=== PATIENT | female | born 1950 | race Caucasian/White ===

== ENCOUNTER → 2024-03-11 | Outpatient (CLI) | payer MEDICARE, BC, SELFPAY ==
[2024-03-08 10:20] LABS: Basophils % (Auto) 1 % (0-2.5); Eosinophils # (Auto) 0.2 Thou/mm3 (0.0-0.5); Eosinophils % (Auto) 5 % (0-10); Hematocrit 34.4 % (36.0-46.0); Hemoglobin 12.1 g/dL (12.0-16.0); Immature Granulocytes % (Auto) 0 % (0-0); Immature Granulocytes Auto 0.01 Thou/mm3 (0.00-0.00); Lymphocytes # (Auto) 0.8 Thou/mm3 (1.0-4.8); Lymphocytes % (Auto) 17 % (10-50); Mean Corpuscular HGB Conc 35.2 g/dl (31.0-37.0); Mean Corpuscular Hemoglobin 33.2 pg (25.0-35.0); Mean Corpuscular Volume 94 fL (80-100); Monocytes # (Auto) 0.5 Thou/mm3 (0.0-0.8); Monocytes % (Auto) 10 % (0-12); Neutrophils # (Auto) 2.9 Thou/mm3 (1.8-7.7); Neutrophils % (Auto) 67 % (37-80); Nucleated Red Blood Cell % 0 /100 WBC (0); Platelet Count 206 Thou/mm3 (140-440); RDW Standard Deviation 46.5 fL (36.4-46.3); Red Blood Count 3.65 Miln/mm3 (4.00-5.20); White Blood Count 4.4 Thou/mm3 (3.6-11.0)
[2024-03-08 10:27] LABS: INR 0.9 (0.9-1.3); Partial Thromboplastin Time 22.9 Seconds (22.0-36.0); Prothrombin Time 10.4 Seconds (9.0-12.2)
--- NOTE | 2024-03-11 08:00 | XR_ITS ---
Examination: Thyroid sonography complete TECHNIQUE: Grayscale sonographic images thyroid lobes with color flow analysis Exam date and time: March 11, 2024 0922 hours Comparison May 15, 2023 INDICATIONS: Enlarging left thyroid nodule 18 x 12 x 13 mm on thyroid sonogram May 15, 2023 FINDINGS: Right thyroid 4.1 x 1.2 x 1.4 cm Upper pole cyst 5 x 3 mm, smaller cysts Left thyroid 4.7 x 1.5 x 1.7 cm Upper pole nodule 11 x 9 mm Midpole vascular nodule 21 x 12 x 13 mm IMPRESSION: Left thyroid nodules as above
--- NOTE | 2024-03-11 08:30 | XR_ITS ---
Examination: Ultrasound-guided fine needle percutaneous aspiration thyroid nodule, left thyroid nodule. Thyroid sonography, limited Exam date and time: March 11, 2024 0929 hours INDICATIONS: Vascular midpole left thyroid nodule on thyroid sonogram May 15, 2023. Technique: A timeout was completed verifying correct patient, procedure, site, positioning and special equipment if applicable. The patient was placed in supine position for the thyroid fine needle percutaneous aspiration The patient's left neck was prepped and draped in sterile fashion. Maximum barrier sterile technique, hand hygiene, ultrasound sterile technique. 1% lidocaine was used to anesthetize the skin and subcutaneous tissues to the patient's right thyroid nodule. Multiple fine needle aspirations were performed and multiple thyroid specimens placed in preservative according to the [employer] protocol. Specimens appears satisfactory. The attending radiologist was present for the entire procedure. Estimated blood loss 3 cc. The patient tolerated the procedure well and there were no complications. Impression: Successful ultrasound-guided fine-needle percutaneous aspiration thyroid nodule, left thyroid nodule.
== END | disposition home or self-care (01) ==
LOC: SDIM 08:05 → SIRX 08:50
PROVIDERS: Radiology Diagnostic Radiology; PCP Family Medicine; Referring Provider Nurse Practitioner; Visit Provider Nurse Practitioner
DX: E04.2 Nontoxic multinodular goiter (principal); C54.1 Malignant neoplasm of endometrium; Z01.812 Encounter for preprocedural laboratory examination
CPT/HCPCS: 10005; 36415; 76536; 85025; 85610; 85730

== ENCOUNTER → 2024-04-30 | Outpatient (CLI) | payer MEDICARE, BC, SELFPAY ==
[2024-04-30 15:43] LABS: Alanine Aminotransferase 11 U/L (10-49); Albumin, Serum 4.4 gm/dL (3.4-4.8); Albumin/Globulin Ratio 2.2 (1.2-2.2); Alkaline Phosphatase 116 U/L (46-116); Anion Gap 8 (7-16); Aspartate Amino Transferase 21 U/L (0-34); BUN/Creatinine Ratio 23 Ratio (12-20); Bilirubin,Total 0.8 mg/dL (0.3-1.2); Blood Urea Nitrogen 21 mg/dL (9-23); Calcium 9.5 mg/dL (8.3-10.6); Calcium (Corrected) 9.5 mg/dL (8.5-10.1); Carbon Dioxide 30.4 mMol/L (20.0-31.0); Chloride 102 mMol/L (98-107); Creatinine (Component) 0.9 mg/dL (0.6-1.3); Glucose 138 mg/dL (74-106); Osmolality,Calculated 284 (275-295); Potassium 4.3 mMol/L (3.4-5.1); Sodium 140 mMol/L (136-145); Total Protein 6.4 gm/dL (5.7-8.2); eGFR > 60 See Note
== END | disposition home or self-care (01) ==
LOC: COPL 13:55
PROVIDERS: PCP Family Medicine; Referring Provider Internal Medicine; Visit Provider Internal Medicine
DX: C54.1 Malignant neoplasm of endometrium (principal)
CPT/HCPCS: 36415; 80053

== ENCOUNTER → 2024-07-03 | Outpatient (CLI) | payer MEDICARE, BC, SELFPAY ==
--- NOTE | 2024-07-03 16:05 | XR_ITS ---
Examination:Right hip AP, lateral, AP pelvis 3 views Technique: Hip AP lateral, AP pelvis, 3 views Exam date and time:July 03, 2024 1611 hours INDICATIONS: Right hip pain years. FINDINGS: Moderate osteopenia Moderate narrowing right and left hip joints Greater trochanteric bursitis right hip No hip or pelvic fractures IMPRESSION: Moderate narrowing right and left hip joints. Greater trochanteric bursitis right hip
== END | disposition home or self-care (01) ==
PROVIDERS: PCP Family Medicine; Referring Provider Family Medicine; Visit Provider Family Medicine
DX: M70.61 Trochanteric bursitis, right hip (principal); M25.852 Other specified joint disorders, left hip; M25.851 Other specified joint disorders, right hip
CPT/HCPCS: 73502

== ENCOUNTER → 2024-07-22 | Outpatient (CLI) | payer MEDICARE, BC, SELFPAY ==
[2024-07-22 15:02] LABS: Alanine Aminotransferase 14 U/L (10-49); Albumin, Serum 4.1 gm/dL (3.4-4.8); Albumin/Globulin Ratio 2.2 (1.2-2.2); Alkaline Phosphatase 160 U/L (46-116); Anion Gap 9 (7-16); BUN/Creatinine Ratio 31 Ratio (12-20); Bilirubin,Total 0.7 mg/dL (0.3-1.2); Blood Urea Nitrogen 25 mg/dL (9-23); Calcium 9.4 mg/dL (8.3-10.6); Calcium (Corrected) 9.4 mg/dL (8.5-10.1); Carbon Dioxide 26.7 mMol/L (20.0-31.0); Chloride 99 mMol/L (98-107); Creatinine (Component) 0.8 mg/dL (0.6-1.3); Globulin 1.9 gm/dL (2.3-3.5); Glucose 94 mg/dL (74-106); Osmolality,Calculated 274 (275-295); Sodium 135 mMol/L (136-145); eGFR > 60 See Note
== END | disposition home or self-care (01) ==
LOC: COPL 13:51
PROVIDERS: PCP Family Medicine; Referring Provider Internal Medicine; Visit Provider Internal Medicine
DX: C54.1 Malignant neoplasm of endometrium (principal)
CPT/HCPCS: 36415; 80053

== ENCOUNTER → 2024-07-24 | Outpatient (CLI) | payer MEDICARE, BC, SELFPAY ==
--- NOTE | 2024-07-24 15:30 | XR_ITS ---
Examination: CT chest with intravenous contrast CT abdomen with intravenous contrast CT pelvis with intravenous contrast 2-D coronal and sagittal reconstructions Time of exam: July 24, [address] chest abdomen pelvis November 16, 2022, INDICATIONS: Diagnosis malignant neoplasm endometrium low back pain 2 months, restaging CTDI: vol (mGy) : 13.5 DLP: (mGycm): 1037 Technique: Multiple axial images of the chest, abdomen and pelvis with intravenous contrast, 3.0 mm slice thickness. Images obtained post intravenous injection Isovue 370 60 cc. 2-D sagittal and coronal reconstructions. Low dose protocols were performed. One or more of the following dose reduction techniques were used; automated exposure control, adjustment of the mA and/or KV according to patient size, use of iterative reconstruction technique. Findings: 10 mm left thyroid nodule No thoracic aortic aneurysm dilatation Pulmonary artery segments are not enlarged No paratracheal tracheobronchial or bronchopulmonary adenopathy 5 mm pulmonary nodule left lower lobe image 212, 3 mm pulmonary nodule right middle lobe image 252 The mass lesion 29 mm in the left lower lobe is no longer identified mass in the left lower lobe now measures 47 mm No pneumonia or pulmonary edema No focal liver or splenic lesion Tiny gallstones No pancreatic or adrenal mass 4.5 cm left renal cyst 5.2 cm umbilical hernia, Soft tissue mass now in the anterior lower abdomen 44 mm Absent uterus No ascites No bladder mass Moderate osteopenia IMPRESSION: 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
== END | disposition home or self-care (01) ==
PROVIDERS: PCP Family Medicine; Referring Provider Internal Medicine; Visit Provider Internal Medicine
DX: C78.6 Secondary malignant neoplasm of retroperitoneum and peritoneum (principal); M85.80 Other specified disorders of bone density and structure, unspecified site; K42.9 Umbilical hernia without obstruction or gangrene; N28.1 Cyst of kidney, acquired; R91.8 Other nonspecific abnormal finding of lung field; E04.1 Nontoxic single thyroid nodule
CPT/HCPCS: 71260; 74177; A4649; Q9967

== ENCOUNTER → 2024-08-26 | Outpatient (CLI) | payer MEDICARE, BC, SELFPAY ==
--- NOTE | 2024-08-26 | XR_ITS ---
Examination: Lumbar spine, 5 views Technique: Lumbar spine AP, lateral, coned lateral lower lumbar spine, bilateral obliques 5 views Exam date and time: August 26, 2024 1218 hours INDICATIONS: Low back pain radiating to the right hip beginning one month ago. FINDINGS: Prominent osteopenia Moderate to advanced diffuse facet arthropathy Chronic fractures L2, L1 No acute fracture Grade 1 anterolisthesis L4 on L5 Advanced degenerative disc disease L2-L3 IMPRESSION: Advanced degenerative disc disease L2-L3
[2024-08-26 14:13] LABS: Basophils # (Auto) 0.1 Thou/mm3 (0.0-0.2); Basophils % (Auto) 1 % (0-2.5); Eosinophils # (Auto) 0.2 Thou/mm3 (0.0-0.5); Eosinophils % (Auto) 3 % (0-10); Hematocrit 36.5 % (36.0-46.0); Hemoglobin 12.6 g/dL (12.0-16.0); Immature Granulocytes Auto 0.02 Thou/mm3 (0.00-0.00); Lymphocytes # (Auto) 1.3 Thou/mm3 (1.0-4.8); Lymphocytes % (Auto) 19 % (10-50); Mean Corpuscular HGB Conc 34.5 g/dl (31.0-37.0); Mean Corpuscular Hemoglobin 31.0 pg (25.0-35.0); Mean Corpuscular Volume 90 fL (80-100); Monocytes # (Auto) 0.7 Thou/mm3 (0.0-0.8); Monocytes % (Auto) 11 % (0-12); Neutrophils # (Auto) 4.3 Thou/mm3 (1.8-7.7); Neutrophils % (Auto) 66 % (37-80); Nucleated Red Blood Cell # 0.00 Thou/mm3 (0.00-0.00); Nucleated Red Blood Cell % 0 /100 WBC (0); Platelet Count 267 Thou/mm3 (140-440); RDW Standard Deviation 46.6 fL (36.4-46.3); Red Blood Count 4.06 Miln/mm3 (4.00-5.20); White Blood Count 6.5 Thou/mm3 (3.6-11.0)
[2024-08-26 14:27] LABS: T4 (Thyroxine) 9.0 mcg/dL (4.5-10.9); Thyroid Stimulating Hormone 2.09 uIU/mL (0.55-4.78)
[2024-08-26 14:28] LABS: Vitamin B12 323 pg/mL (211-911); Vitamin D 25 Hydroxy Total 33.7 ng/mL (7.3-40.2)
== END | disposition home or self-care (01) ==
LOC: CDIM 11:53 → COPL 12:39
PROVIDERS: PCP Family Medicine; Referring Provider Family Medicine; Visit Provider Radiology Diagnostic Radiology
DX: M51.369 Other intervertebral disc degeneration, lumbar region without mention of lumbar back pain or lower extremity pain (principal); C34.90 Malignant neoplasm of unspecified part of unspecified bronchus or lung; C78.00 Secondary malignant neoplasm of unspecified lung; R26.81 Unsteadiness on feet; R79.9 Abnormal finding of blood chemistry, unspecified
CPT/HCPCS: 36415; 72110; 82306; 82607; 84436; 84443; 85025

== ENCOUNTER → 2024-10-03 | Outpatient (CLI) | payer MEDICARE, BC, SELFPAY ==
[2024-10-03 14:19] LABS: Basophils # (Auto) 0.0 Thou/mm3 (0.0-0.2); Basophils % (Auto) 1 % (0-2.5); Eosinophils # (Auto) 0.3 Thou/mm3 (0.0-0.5); Eosinophils % (Auto) 4 % (0-10); Hematocrit 36.0 % (36.0-46.0); Hemoglobin 11.7 g/dL (12.0-16.0); Immature Granulocytes Auto 0.02 Thou/mm3 (0.00-0.00); Lymphocytes # (Auto) 1.2 Thou/mm3 (1.0-4.8); Lymphocytes % (Auto) 18 % (10-50); Mean Corpuscular HGB Conc 32.5 g/dl (31.0-37.0); Mean Corpuscular Hemoglobin 29.8 pg (25.0-35.0); Mean Corpuscular Volume 92 fL (80-100); Monocytes # (Auto) 0.7 Thou/mm3 (0.0-0.8); Monocytes % (Auto) 10 % (0-12); Neutrophils # (Auto) 4.6 Thou/mm3 (1.8-7.7); Neutrophils % (Auto) 67 % (37-80); Nucleated Red Blood Cell # 0.00 Thou/mm3 (0.00-0.00); Nucleated Red Blood Cell % 0 /100 WBC (0); Platelet Count 384 Thou/mm3 (140-440); RDW Standard Deviation 47.9 fL (36.4-46.3); Red Blood Count 3.92 Miln/mm3 (4.00-5.20); White Blood Count 6.9 Thou/mm3 (3.6-11.0)
[2024-10-03 14:42] LABS: Alanine Aminotransferase 10 U/L (10-49); Albumin, Serum 4.4 gm/dL (3.4-4.8); Albumin/Globulin Ratio 1.9 (1.2-2.2); Alkaline Phosphatase 162 U/L (46-116); Anion Gap 9 (7-16); Aspartate Amino Transferase 19 U/L (0-34); BUN/Creatinine Ratio 18 Ratio (12-20); Bilirubin,Total 0.6 mg/dL (0.3-1.2); Blood Urea Nitrogen 18 mg/dL (9-23); Calcium 10.1 mg/dL (8.3-10.6); Calcium (Corrected) 10.1 mg/dL (8.5-10.1); Carbon Dioxide 27.7 mMol/L (20.0-31.0); Chloride 99 mMol/L (98-107); Creatinine (Component) 1.0 mg/dL (0.6-1.3); Globulin 2.3 gm/dL (2.3-3.5); Glucose 165 mg/dL (74-106); Osmolality,Calculated 277 (275-295); Potassium 4.1 mMol/L (3.4-5.1); Sodium 136 mMol/L (136-145); Total Protein 6.7 gm/dL (5.7-8.2); eGFR 59 See Note
[2024-10-03 14:49] LABS: CA 125 166.0 U/mL (<30.2)
== END | disposition home or self-care (01) ==
LOC: COPL 13:19
PROVIDERS: PCP Family Medicine
DX: C54.1 Malignant neoplasm of endometrium (principal)
CPT/HCPCS: 36415; 80053; 85025; 86304